=== PATIENT | female | born 1995 | race Caucasian/White ===

== ENCOUNTER → 2020-08-12 | Outpatient (CLI) | payer BC | LOC: LAB 12:48 | DX: N97.9 Female infertility, unspecified (principal) | CPT/HCPCS: 84144 ==

== ENCOUNTER 2021-02-03 05:28 | Observation (INO) | payer BC, OTHER | END 2021-02-03 05:51 | disposition hospice, inpatient (51) | LOC: CDU 05:28 | PROVIDERS: ADMIT Obstetrics & Gynecology | DX: Z53.09 Procedure and treatment not carried out because of other contraindication (principal) | CPT/HCPCS: G0378; G0379 ==

== ENCOUNTER 2021-02-03 05:55 | Outpatient (CLI) | payer BC, OTHER ==
[2021-02-03 07:07] LABS: HEMOGLOBIN 10.2 gm/dl (12.3-15.3); RED BLOOD COUNT 3.54 M/UL (4.00-5.10); WHITE BLOOD COUNT 7.9 K/UL (4.5-11.0)
[2021-02-03 07:50] LABS: BUN/CREATININE RATIO 12 (0-10)
== END 2021-02-03 17:00 | disposition home or self-care (01) ==
LOC: GENOP 05:55
PROVIDERS: Obstetrics & Gynecology
DX: O21.1 Hyperemesis gravidarum with metabolic disturbance (principal); O99.282 Endocrine, nutritional and metabolic diseases complicating pregnancy, second trimester; E28.2 Polycystic ovarian syndrome; Z3A.27 27 weeks gestation of pregnancy
CPT/HCPCS: 80053; 81001; 82150; 82962; 83690; 85025; 87086; 96361; 96365; 96374; G0378; G0379; J2405; J7120

== ENCOUNTER 2021-04-29 16:34 | Inpatient (IN) | payer BC, OTHER ==
[~2021-04-29] VITALS: Ht 157.5 cm; Wt 90.7 kg
[2021-04-29 17:17] LABS: HEMOGLOBIN 13.6 gm/dl (12.3-15.3); RED BLOOD COUNT 4.5 M/UL (4.00-5.10); WHITE BLOOD COUNT 7.6 K/UL (4.5-11.0)
[2021-04-30] MEDS ORDERED: DOCUSATE SODIU100 MG PO (11:25)
[2021-04-30] MEDS ORDERED: IBUPROFEN800 MG PO (11:25)
[2021-04-30] MEDS ORDERED: HYDROCODON-ACE1 EAC4 PO (16:52)
[2021-05-01 08:34] LABS: HEMOGLOBIN 11.5 gm/dl (12.3-15.3)
== END 2021-05-02 13:27 | disposition home or self-care (01) | DRG 807 ==
LOC: GENOP 16:34 → OB 16:46
PROVIDERS: ADMIT Obstetrics & Gynecology
PROC: 10E0XZZ Delivery of Products of Conception, External Approach (ICD-10-PCS; principal; 2021-04-30)
PROC: 10907ZC Drainage of Amniotic Fluid, Therapeutic from Products of Conception, Via Natural or Artificial Opening (ICD-10-PCS; 2021-04-30)
PROC: 3E033VJ Introduction of Other Hormone into Peripheral Vein, Percutaneous Approach (ICD-10-PCS; 2021-04-30)
PROC: 0HQ9XZZ Repair Perineum Skin, External Approach (ICD-10-PCS; 2021-04-30)
PROC: 4A1H8CZ Monitoring of Products of Conception, Cardiac Rate, Via Natural or Artificial Opening Endoscopic (ICD-10-PCS; 2021-04-30)
PROC: 10H073Z Insertion of Monitoring Electrode into Products of Conception, Via Natural or Artificial Opening (ICD-10-PCS; 2021-04-30)
PROC: 10H07YZ Insertion of Other Device into Products of Conception, Via Natural or Artificial Opening (ICD-10-PCS; 2021-04-30)
DX: O24.424 Gestational diabetes mellitus in childbirth, insulin controlled (principal); Z37.0 Single live birth; O99.284 Endocrine, nutritional and metabolic diseases complicating childbirth; E28.2 Polycystic ovarian syndrome; Z20.822 Contact with and (suspected) exposure to COVID-19; O70.0 First degree perineal laceration during delivery; Z3A.39 39 weeks gestation of pregnancy; Z98.890 Other specified postprocedural states
CPT/HCPCS: 36415; 51702; 81001; 82800; 82962; 85014; 85018; 85025; J2405; J2590; J7030